=== PATIENT | male | born 1940 | race Caucasian/White ===

== ENCOUNTER 2023-04-30 10:13 | Outpatient (RCR) | payer MEDICARE, OTHER, SELFPAY ==
[2023-04-30 10:20] VITALS: BP 165/80
[2023-04-30] MEDS: CORTROSYN 1 MG IV (11:30)
[2023-04-30 12:30] VITALS: BP 162/80
[2023-04-30 13:33] LABS: ACTH Stim Cortisol 30 Min 16.6 ug/dl
== END 2023-05-24 23:59 | disposition home or self-care (01) ==
LOC: OID 10:13
PROVIDERS: ATTENDING PHYSICIAN Internal Medicine Geriatric Medicine
DX: I95.1 Orthostatic hypotension (principal)
CPT/HCPCS: 36415; 82533; 96374

== ENCOUNTER → 2023-08-10 10:53 | Outpatient (REF) | payer MEDICARE, OTHER, SELFPAY | LOC: HWRAD 10:53 | PROVIDERS: ATTENDING PHYSICIAN Internal Medicine Geriatric Medicine | DX: S09.90XA Unspecified injury of head, initial encounter (principal) | CPT/HCPCS: 70450 ==

== ENCOUNTER 2023-09-04 21:16 | Observation (INO) | payer MEDICARE, OTHER, SELFPAY ==
[2023-09-04] VITALS (8 sets, daily range): BP systolic 147–175; BP diastolic 61–85; BMI 25.9; BMI 25.4
--- NOTE | 2023-09-04 15:31 | ED.GENMED ---
History of Present Illness
General
Chief Complaint: Dizziness
Source: patient
Exam Limitations: none
Time Seen by Provider: 09/04/23 15:17
Nursing documentation reviewed up to this point in time: agreed with
Travel History
Have you had any contact with someone who has COVID-19?: No
Do you have any symptoms of coronavirus? Fever > 100 degrees, chills, cough, shortness of breath, sore throat, loss of taste or smell, muscle aches, or headache?: No
History of Present Illness
History of Present Illness:
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 Patient has a history of orthostatic hypotension however the past
1 week he has felt very dizzy. He reports this feels slightly different than his normal orthostatic hypotension because after getting up symptoms are lasting and not going away. Patient does not necessarily feel the room spinning. He reports
symptoms occur only with change in position. He does report this week his blood pressure was on the lower side 88/50.
Past History
Past History
ED Past Medical History: Arrthythmia, CAD, Cancer (Melanoma), HTN, Hypercholesterolemia, Valvular disease, Psychiatric (Depression) and Other (mIGRAINES, )
ED Past Surgical History: Cardiac (CABG, Aortic valve replaced. ) and Tonsilectomy
Social History
Tobacco: Non-smoker
Alcohol: Daily ([place] )
Personal: Single
Living: alone
Employment: Retired
Family History
Family History: Negative Diabetes, Hypertension, Early CAD, Asthma or Cancer
Review of Systems
Review of Systems
Allergies reviewed?: Yes
All Other Systems: ROS reviewed and negative except as documented in HPI and ROS
Constitutional: Reports no symptoms; Denies fever, fatigue or chills
EENT: Reports no symptoms
Respiratory: Reports no symptoms
Cardiac: Reports other (dizzy with position change )
ABD/GI: Reports nausea (nausea with dizziness )
: Reports no symptoms
Musculoskeletal: Reports no symptoms
Skin: Reports no symptoms
Neurological: Reports dizzy
Endocrine: Reports no symptoms
Hematologic/Lymphatic: Reports no symptoms
Psychiatric: Reports no symptoms
Phy Exam
General Physical Exam
General Presentation: no apparent distress
General age: appears stated age
General Skin: warm and dry
General Habitus: normal
General Mental: alert
General Hydration: appears well hydrated
Cardiovascular Exam
Cardiovascular Exam: regular rate/rhythm, no murmur and normal peripheral pulses
Pulmonary Exam
Pulmonary Exam: lungs clear and no respiratory distress
Neurological Exam
Neurological Exam: alert, oriented x3, no motor deficits, no sensory deficits, speech normal and cerebellum intact
[place] Coma Scale
Eye Opening: Spontaneous
Verbal Response: Oriented
Motor Response: Obeys Commands
GCS Total Score: 15
Cerebellar
Cerebellar Function: normal finger to nose
Musculoskeletal Exam
Musculoskeletal Exam: full ROM
Skin Exam
Skin Exam: normal color and warm/dry
Psychiatric Exam
Psychiatric Exam: normal mood/affect
Course
Orders/Labs/Results
Orders:
Orders
09/04/23 Breakfast
Cholesterol Lowering
At Your Request: Full Participation
Cholesterol Lowering: Sodium, 2 Gram
09/04/23 14:57
Electrocardiogram (*1) Urgent
Reason for Study: Chest Pain
EKG- Treatment ONCE
09/04/23 16:09
IV Insert/Care/Rem.- Treatment PRN
09/04/23 16:19
Complete Blood Count/With Diff Urgent
Comprehensive Metabolic Panel Urgent
NT-proBNP Urgent
Comment: ADD ON
PT/INR [Prothrombin Time] Urgent
09/04/23 16:56
CT Head W/o Iv Contrast Urgent
Comment:
Reason For Exam: dizziness
09/04/23 18:30
Orthostatic VS- Treatment ONCE
09/04/23 19:10
Chest [CR Chest - 2 Views ] Urgent
Comment:
Reason For Exam: sob
09/04/23 19:11
Add On- LAB Stat
Tests Added?: cardiac bnp
09/04/23 20:57
Admit/Transfer Patient As Directed
Co-Sign Provider:
Level of Care: Observation services
Assign to:: Telemetry
Physician / Group: guerda bolaños
Diagnosis: dizziness
Reason for Telemetry: Arrhythmia
Date to Stop Telemetry: 09/07/23
Time to Stop Telemetry: 11:00
Reason for Hospitalization: dizziness
09/04/23 20:58
Warfarin [Coumadin] 5 mg PO NOW STA
09/04/23 21:00
Code Status As Directed
Resuscitation Status: Do not resuscitate
Reached after discussion with pt or family/Healthcare POA: Yes
DNR Bracelet Application ONCE
09/04/23 21:46
Acetaminophen [Tylenol] 650 mg PO Q4HPRN PRN
Bisacodyl [Dulcolax] 10 mg RECTAL [id number] PRN
Docusate W/Senna [Senokot-S] 1 tablet PO BIDPRN PRN
Polyethylene Glycol Powder [Miralax] 17 grams PO DAILYPRN PRN
Zolpidem Tartrate [Ambien] 10 mg PO HSPRN PRN
09/04/23 21:46
Urinalysis Reflex To Culture Routine
Activity As Directed
Activity Level: As Tolerated
Neurological Checks As Directed
Frequency: Per unit guidelines
Teds [Anti-embolism (RAGHU) Hose] As Directed
Type: Thigh high
Vital Signs As Directed
Frequency: Per unit guidelines
09/05/23 06:00
Basic Metabolic Panel IN AM
Cardiovascular Evaluation IN AM
Complete Blood Count/No Diff IN AM
PT/INR [Prothrombin Time] IN AM
Occupational Therapy Consult [Ot Eval And Treat] IN AM
Physical Therapy Consult [Pt Eval And Treat] IN AM
Activity Level: As Tolerated
09/05/23 08:00
Amlodipine [Norvasc] 2.5 mg PO BID
Escitalopram Oxalate [Lexapro] 20 mg PO DAILY
Tamsulosin [Flomax] 0.4 mg PO DAILY
09/05/23 12:00
Atorvastatin [Lipitor] 80 mg PO NOON
Ezetimibe [Zetia] 10 mg PO NOON
09/05/23 15:00
Nebivolol HCl [Bystolic] 2.5 mg PO DAILY@1500
09/05/23 18:00
Warfarin [Coumadin] 2.5 mg PO SuMoWeFrSa@1800
09/06/23 18:00
Warfarin [Coumadin] 1 mg PO TuTh@1800
Warfarin [Coumadin] 2.5 mg PO TuTh@1800
09/07/23 11:00
DC Protocol for Telemetry ONCE
Abnormal Lab Results
09/04/23
16:19
RBC 4.56 L 10^6/uL
(4.70-6.10)
MCH 31.4 H pg
(27.0-31.0)
MPV 10.8 H fL
(7.4-10.4)
Absolute Lymphs (auto) 0.9 L 10^3/uL
(1.2-3.4)
Lymphocytes % 16.3 L %
(20.5-51.1)
Monocytes % 9.4 H %
(1.7-9.3)
PT 21.6 H Sec
(11.4-14.6)
09/04/23 16:19
09/04/23 16:19
Vital Signs
Initial and Last Documented VS:
Initial Vital Signs
Temp Pulse Resp Pulse Ox
97.7 F 67 20 95
09/04/23 14:53 09/04/23 14:53 09/04/23 14:53 09/04/23 14:53
Last Documented Vital Signs
Temp Pulse Resp BP Pulse Ox
98.9 F 66 20 161/85 96
09/04/23 22:01 09/04/23 22:01 09/04/23 22:01 09/04/23 22:01 09/04/23 22:01
MDM/Problems Addressed
Differential Diagnosis Includes:
not limited to: vertigo , cva, orthostatic hypotension
MDM/Problems Addressed:
Patient is an 82-year-old male who presents to the ER for evaluation of dizziness for the past week. He does have a history of orthostatic hypotension and reports he felt this felt similar but this is not going away. It is worse with position
change. He denies the room spinning but feels at times that he is spinning. He is afraid he is going to fall. On arrival he is awake alert no acute distress normal [id number] no nystagmus no headache CT head negative. Patient did walk and is
slightly off balance. Initially in the ER visit he did not mention because he did not want to stay in the hospital he had felt intermittently short of breath. He does have a history of CHF but lungs are clear chest x-ray negative. He does have
artificial valve and is on Coumadin. INR is 1.89.
Patient denies any fevers and is afebrile here with normal white count stable hemoglobin normal chemistries.
Discussed with neuro with continued sensation of dizziness mild balance issues will admit for further workup
Chronic conditions affecting care:
Orthostatic hypotension CHF, vertigo, cva
*Critical Care Note
Total Time (30-74mins, 75-104mins- exclusive of procedures): Not Applicable
ED Attending Note
-
Portions of this chart may have been created with voice recognition software.� Occasional wrong word or��sound alike� substitutions may have occurred due to the inherent limitations of voice recognition software.
Discharge Plan
Departure
Patient Disposition: Admit
Date of Disposition: 09/04/23
Time of Disposition: 20:41
Admit to: Med/Surg
Admit to doctor: hospitalist
Presentation/result/management discussed w/ accepting MD/DO: Hospitalist
Condition: Fair
Covid-19: Not Applicable
Discharge Problem:
Dizziness
Interventions
Interventions:
*Risk Screen - Suicide Last Done: 09/04/23 14:53
*General Assessment Last Done: 09/04/23 14:53
*Neglect/Abuse Screening Last Done: 09/04/23 14:53
ED- Fall Risk Assessment Last Done: 09/04/23 19:52
*ED COVID-19 Vaccine History Last Done: 09/04/23 16:22
*Nursing Disposition Last Done: 09/04/23 21:46
ED- Neurological Assessment Last Done: 09/04/23 16:26
ED Swallowing Screen Last Done: 09/04/23 19:19
Discharge Date and Time
Discharge Date/Time: 09/04/23 21:47
[2023-09-04 16:34] LABS: % Basophils 0.5 % (0-2); % Eosinophils 1.4 % (0-6); % Immature Granulocytes 0.3 % (0-0.5); % Lymphocytes 16.3 % (20.5-51.1); % Monocytes 9.4 % (1.7-9.3); % Neutrophils 72.1 % (42.2-75.2); Absolute Eosinophils 0.1 10^3/uL (0-0.7); Absolute Lymphocytes 0.9 10^3/uL (1.2-3.4); Absolute Monocytes 0.5 10^3/uL (0.1-0.6); Absolute Neutrophils 4.1 10^3/uL (1.4-6.5); Hematocrit 41.6 % (39.0-52.0); Hemoglobin 14.3 g/dL (13.0-18.0); Mean Corp Hgb Conc. 34.4 g/dL (33.0-37.0); Mean Corpuscular Hgb 31.4 pg (27.0-31.0); Mean Corpuscular Volume 91.2 fL (80.0-94.0); Mean Platelet Volume 10.8 fL (7.4-10.4); Nucleated Red Blood Cells % 0 % (-); Platelet Count 133 10^3/uL (130-400); Red Blood Cell Count 4.56 10^6/uL (4.70-6.10); White Blood Cell Count 5.8 10^3/uL (4.8-10.8)
[2023-09-04 16:43] LABS: INR 1.89; PT 21.6 Sec (11.4-14.6)
[2023-09-04 16:48] LABS: ALT (SGPT) 28 U/L (0-50); AST (SGOT) 32 U/L (17-59); Albumin 4.6 g/dl (3.5-5.0); Alkaline Phosphatase 72 U/L (38-126); Blood Urea Nitrogen 19 mg/dl (9-20); Calcium 9.9 mg/dl (8.4-10.2); Carbon Dioxide 26 mmol/L (22-30); Chloride 106 mmol/L (98-107); Estimated Creatinine Clearance 65 ml/min; Glucose 97 mg/dl (70-99); Potassium 4.7 mmol/L (3.5-5.1); Sodium 140 mmol/L (135-145); Total Bilirubin 1.3 mg/dl (0.2-1.3); Total Protein 6.7 g/dl (6.3-8.2); eGFR > 60.00
[2023-09-04 20:12] LABS: NT-proBNP 1660 pg/ml
--- NOTE | 2023-09-04 20:38 | HPS.HSE ---
Family Physician
-
Family Physician: Sander Gorman
Chief Complaint
-
dizzy
History of Present Illness
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 patient stated progressively worsening of dizzy. he was noted
hypotensive at home. patient feels the dizzy, when he up ad chirag. dizzy resolves when sitting or laying down. denied spinning sensation. denied MIRANDA, or syncopal episode. denied fever, chills, runny nose,congestion,cough. denied chest pain, sob. denied
abdominal pain,n,v,d. denied dysuria or hematuria.
admitting for further management.
Medical History
Past Medical History
Past Medical History: Reports Other
Additional Past Medical History:
Coronary artery disease
anxiety
Hypertension
syncope
GERD
Hyperlipidemia
Paroxysmal A-fib
Aortic valve stenosis
Past Surgical History: Reports Other
Additional Past Surgical History:
Aortic valve replacement
Coronary artery bypass graft
Bilateral cataract surgery
Social History
Tobacco: Non-smoker
Alcohol: Daily
Drug: None
Personal: Single
Living: Alone
Employment: Retired
Family History
Family History: Not pertinent
Allergies / Home Medications
Allergies reflects when Allergies were last updated in [facility].
Home Medications with original date entered in [facility]
Allergy/Medication List:
Allergies
Allergy/AdvReac Type Severity Reaction Status Date / Time
No Known Allergies Allergy Verified 09/04/23 14:57
Home Medications
amlodipine 2.5 mg tablet 2.5 mg PO BID 09/04/23
atorvastatin 80 mg tablet 80 mg PO NOON 09/04/23
cholecalciferol (vitamin D3) 25 mcg (1,000 unit) tablet 25 mcg PO DAILY 09/04/23
escitalopram oxalate 20 mg tablet 20 mg PO DAILY 09/04/23
ezetimibe 10 mg tablet 10 mg PO NOON 09/04/23
nebivolol 2.5 mg tablet 2.5 mg PO DAILY@1500 09/04/23
tamsulosin 0.4 mg capsule 0.4 mg PO DAILY 09/04/23
warfarin 1 mg tablet 1 mg PO TUTH@79909/04/23
warfarin 2.5 mg tablet 2.5 mg PO SUMOWEFRSA@79909/04/23
warfarin 2.5 mg tablet 2.5 mg PO TUTH@79909/04/23
zolpidem 10 mg tablet 10 mg PO HS PRN sleep 09/04/23
Review of Systems
-
Constitutional: Reports No Symptoms
EENT: Reports No Symptoms
Respiratory: Reports No Symptoms
Cardiac: Reports No Symptoms
Abdomen/GI: Reports No Symptoms
: Reports No Symptoms
Musculoskeletal: Reports No Symptoms
Skin: Reports No Symptoms
Neurological: Reports Dizzy
Endocrine: Reports No Symptoms
Hematologic/Lymphatic: Reports No Symptoms
Psych: Reports No Symptoms
Physical Exam
Vital Signs
Vital Signs
Temp Pulse Resp BP Pulse Ox
98.2 F 71 14 156/61 96
09/04/23 19:19 09/04/23 19:45 09/04/23 19:45 09/04/23 19:00 09/04/23 19:15
Physical Exam
General: Well Developed, Well Nourished and No Apparent Distress
HEENT: NormoCephalic, Moist mucous membranes and Atraumatic
Respiratory: Clear
Cardiac: S1/S2 and Regular Rhythm; No Murmur or Rub
GI: Soft, Non Tender, Non Distended and Normal Bowel Sounds; No Organomegaly
Rectal: Deferred by Provider
Musculoskeletal: No Clubbing, No Cyanosis and No Edema
Skin: No Rash
Neuro: AO x 3 and Nonfocal/grossly intact
Psych: Calm
Laboratory Results
-
09/04/23 16:19
09/04/23 16:19
Laboratory Results
PT 21.6 Sec (11.4-14.6) H 09/04/23 16:19
INR 1.89 09/04/23 16:19
Total Bilirubin 1.3 mg/dl (0.2-1.3) 09/04/23 16:19
AST 32 U/L (17-59) 09/04/23 16:19
ALT 28 U/L (0-50) 09/04/23 16:19
Alkaline Phosphatase 72 U/L (38-126) 09/04/23 16:19
Data Reviewed
-
Diagnostic Radiology: Report Reviewed by me
CT Scan: Report Reviewed by me
Lab Data: Labs Reviewed by me
Impression/Plan
-
#postural dizziness
-obtain orthostatics
-PT/OT consult
-head ct with No acute intracranial abnormality.
-EKG NSR
-lisseth stockings
-Neurology consulted
#essential hypertension
-Norvasc continued
# Paroxysmal A-fib
-Nebivolol continued
-warfarin continued
#BPH
-Flomax continued
# Hyperlipidemia
-Statin continued
-Zetia continued
#anxiety
-Citalopram continued
#hxt of AVR
#hxt of CAD
-s/p CABG
#DVT prophylaxis
-warfarin continued
#CODE status
-DNR
--- NOTE | 2023-09-04 20:59 | W.PN.UPDATE ---
Update Note
Progress Note Update
This note serves as an addendum to the H&P by home appliances mechanic JUSTIN Linh RUSSELL
HPI
82M HX postural hypotension , mechanical Aortic prostheic valve on chr warfarin, HTN seen at ER for dizziness.
Evaluation of Dizziness and balance disfunction
- acute onset for 1 week
- not necessarily feel the room spinning
- occur only with change in position
- felt nauseated with dizziness
- Report this week his blood pressure was on the lower side 88/50.
- BP at ER: 175/75 --> 150/70
- different from lightheadedness due to postural hypotension
Drink daily one [place]
PMHX:
Arrhythmia
CAD
Melanoma
HTN
Hypercholesterolemia,
Valvular disease
Depression
Migraines
PSHX:
CABG
Mechanical Aortic valve replaced
Tonsillectomy
SHX
Tobacco: Non-smoker
Alcohol: Daily ([place] 1)
Personal: Single
Living: alone
Employment: Retired
FHX
Negative Diabetes, Hypertension, Early CAD, Asthma or Cancer
Reviewed VS: Afebrile 175/75 --> 150/70 HR hi 50s to 60s
PE
Gen: not toxic , appropriate
HEENT: symmetric AE, nl speech, nl cognition , no nystagmus
Neck: supple , no carotid bruit , no JVD
Lungs: symmetric AE
Cor: RRR S1 S2 , POS Aortic valve click
Abdomen: soft benign
INSIDE WIRER: AAO3, NFND
MS: no edema
Psych: appropriate
Data
Unremarkable CBC
Unremarkable CMP
INR 1.89
CXR: No acute cardiopulmonary process.
HCT: No acute intracranial abnormality
12/14/17 TTE
nl BiV size and systolic function
Normally functioning mechanical prosthetic aortic valve.
Last hospitalist admission:
ASSESSMENT & PLAN
Acute onset of persistent orthostatic Dizziness with walking for 1 week
Associated nausea and associated balance dysfunction
Non focal exam DDX: Likely BPPV vs central
- fall precaution
- check ortho VSS once in AM
- PT/OT
- Cannot have Brain MRI due to mechanical prosthetic valve
- Neuro consult
Sub Rx-tic INR 1.89
Normally functioning mechanical prosthetic aortic valve with goal 2.5- 3.5
- additional 2 .5 mg of warfarin tonight and cont [employer]ET[employer]IST Warfarin
- daily INR
Essential HTN
- cont Amlodipine and Nebivolol
HLD
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
BPH
- on tamsulosin
DVT Px: on warfarin
Full code
OBS TLM
[2023-09-04] MEDS: COUMADIN 5 MG PO (21:13)
[2023-09-05] VITALS (7 sets, daily range): BP systolic 116–165; BP diastolic 57–72; PULSE 69–75; BMI 24.8
--- NOTE | 2023-09-05 01:35 | PTCARENOTE ---
Pt received from ER aaox3 able to make his needs known, pleasant & cooperative. Pt c/o dizziness only at times when trying to get up or trying to walk. Pt encouraged to call for help as needed. KICK [employer]OXER chemical dependency professional made aware of pt BP range, refusing RAGHU
stockings & pt asking for sleeping pill & unable to give at this time as pt here with dizziness & with safety concerns, pt able to understand.Pt provided with urinal. Call mcclain in reach.Plan of care continued.CHF packet provided to pt.
[2023-09-05 05:34] LABS: Hematocrit 39.1 % (39.0-52.0); Hemoglobin 13.5 g/dL (13.0-18.0); Mean Corp Hgb Conc. 34.5 g/dL (33.0-37.0); Mean Corpuscular Hgb 31.3 pg (27.0-31.0); Mean Corpuscular Volume 90.7 fL (80.0-94.0); Mean Platelet Volume 10.8 fL (7.4-10.4); Platelet Count 120 10^3/uL (130-400); Red Blood Cell Count 4.31 10^6/uL (4.70-6.10); White Blood Cell Count 4.2 10^3/uL (4.8-10.8)
[2023-09-05 05:43] LABS: INR 1.96; PT 22.2 Sec (11.4-14.6)
[2023-09-05 06:00] LABS: Blood Urea Nitrogen 18 mg/dl (9-20); Calcium 8.9 mg/dl (8.4-10.2); Carbon Dioxide 26 mmol/L (22-30); Chloride 107 mmol/L (98-107); Estimated Creatinine Clearance 65 ml/min; Glucose 90 mg/dl (70-99); HDL Cholesterol 39 mg/dl; LDL Cholesterol, Calculated 42 mg/dl; Potassium 3.7 mmol/L (3.5-5.1); Sodium 140 mmol/L (135-145); Total Cholesterol 104 mg/dl (50-199); Triglyceride 117 mg/dl (10-149); Very Low Density Lipoprotein 23 mg/dl (0-30); eGFR > 60.00
[2023-09-05 07:15] LABS: Urine Albumin Negative (Neg - Trace); Urine Bilirubin Negative (Negative); Urine Character Clear (Clear); Urine Color Yellow; Urine Glucose Negative (Negative); Urine Ketone Negative (Negative); Urine Leukocyte Negative (Negative); Urine Nitrite Negative (Negative); Urine Occult Blood Negative (Negative); Urine Specific Gravity 1.015 (<1.030); Urine Urobilinogen Negative (Neg - 1+); Urine pH 6.5 (5.0-9.0)
[2023-09-05] MEDS: NORVASC 2.5 MG PO (08:18)
[2023-09-05] MEDS: LEXAPRO 20 MG PO (08:18)
[2023-09-05] MEDS: FLOMAX 0.400000000000000022 MG PO (08:19)
[2023-09-05] MEDS: LIPITOR 80 MG PO (12:18)
[2023-09-05] MEDS: ZETIA 10 MG PO (12:18)
--- NOTE | 2023-09-05 13:18 | CON.NEURO4 ---
Consultation - Neurology 4
-
CONSULTING PHYSICIAN: Allegra Baumann
REFERRING PHYSICIAN: Hospitalist
DICTATED BY: Allegra Baumann
DATE/TIME OF REQUEST: 09/05/23
DATE/TIME OF CONSULTATION: 09/05/23
Reason for Consultation: Dizziness
History of Present Illness:
Patient is an 82-year-old man with a past med history of aortic valve replacement on Coumadin, orthostatic hypotension, coronary artery disease, CHF and hyperlipidemia presented to hospital for dizziness happening over about the past week.
Patient characterizes has dizziness as very frequent but not completely constant, currently sitting in the chair he feels fine without any vertigo or dizziness sensation. With standing and with movements and walking patient does have sensation of
dizziness. He denies any sudden hearing change or tinnitus recently. No double vision or unilateral paresthesia or weakness. No unusual headaches or dysarthria. He is compliant with medications for high blood pressure including amlodipine,
nebivolol, and does take tamsulosin for BPH as well. No recent illnesses and no recent changes in medications he is compliant with Coumadin.
Patient relates a history of orthostatic hypotension with blood pressure sometimes dropping to the 80s to 90 systolic with standing. To his knowledge he is not taking Midodrine or medications to increase blood pressure.
Allergies: No known drug allergies
Review of Symptoms:
Patient denies any fever, headache, chest pain, shortness of breath, GI or symptoms.
Physical Exam:
Well-appearing elderly man no signs of acute distress no head or neck trauma eyes are clear oropharynx is clear, no neck masses, heart rate with systolic murmur, regular rhythm, breathing unlabored, abdomen soft nontender, no lower extremity edema
seen
Neurologic Examination:
The patient is awake, alert and oriented x 3. He is able to follow commands and answer questions appropriately. There is no aphasia or dysarthria. On cranial nerve assessment, pupils are 3 mm bilateral, round and reactive to light and
accommodation. Visual parkinson are full. Extraocular movements are intact. No pathologic or abnormal nystagmus seen. Facial sensations are intact and bilaterally symmetrical, there is no facial asymmetry. Hearing is intact bilaterally to normal
conversation volume. Tongue palate and uvula are midline. Sternocleidomastoid strengths are full bilaterally. Motor strengths are 5/5 bilateral upper and lower extremities on medical research [place] scale. There is no drift or involuntary movement
noted. Deep tendon reflexes are 2+ bilateral upper and lower extremities and Babinski is absent bilaterally. Normal sensation to light touch. There was no extinction noted on double simultaneous stimulation. Coordination is intact by finger to nose
bilaterally.
Wallace Hallpike maneuver negative for nystagmus
CT head non contrast no acute abnormalities
Impressions
Dizziness. Examination not at all consistent with vestibular neuritis and his history and exam also I do not feel arouse concern for posterior circulation ischemic stroke. Most likely this is in part due to orthostatic hypotension given use of
Tamsulosin, Amlodipine, and Nebivolol in patient with known CHF and history or orthostatic hypotension. Some possibility this is anterior or horizontal canal BPPV, as BPPV can sometimes have long lasting or seemingly constant dizziness instead of
the usual short lasting episodes of vertigo seen in BPPV.
Recommendations:
1. Vestibular based physical therapy may be helpful and I do think would be worthwhile
2. Would considering lowering or stopping one of the agents that can produce low blood pressure (tamsulosin, amlodipine or nebivolol)
3. Not seeing strong reason to pursue brain MRI or further head/neck imaging for the patient
4. Will be useful to follow BP's at home
Discussed patient care with: Patient, Dr Gardiner
--- NOTE | 2023-09-05 13:25 | CM ---
Alert awake oriented patient who lives alone in a 3 story home with 2 step to enter and 14 steps to bed and bathroom. He is independent in driving and in all activities of daily living.He uses a Cane. He was offered VN he declined need because he
was given pamphlet for Vestibular out pt Therapy which he said he will set up after dc.SORIANO letter reviewed.SORIANO letter signed on chart.
No VN hx / No SNF history
Pharmacy [facility]
PCP DR Gorman
PLAN Home Declined VN
--- NOTE | 2023-09-05 15:52 | W.PN.HOSP.TC ---
Today's Communication/Plan
-
d/c home
Assessment / Plan
Assessment / Plan
# Dizziness
-Have on and off episodes although worsening in last 1 week
-Orthostatic vitals positive with drop in SBP from 138 to 120, after discussion with patient discontinuing Norvasc. Continue Flomax. Patient mentioned about starting Flomax approximately 1 week back and may be playing a role as well.
-Physical therapy/vestibular assessment ruled out any BPPV/neuritis
-Neurology evaluated and no concern of posterior circulation stroke.
-CT head is negative for any acute abnormalities.
-Patient to be discharged home with follow-up with vestibular therapy on outpatient basis
#essential hypertension
-discontinue norvasc
# Paroxysmal A-fib
-Nebivolol continued
-warfarin continued
#BPH
-Flomax continued
# Hyperlipidemia
-Statin continued
-Zetia continued
#anxiety
-Citalopram continued
#hxt of AVR
#hxt of CAD
-s/p CABG
#DVT prophylaxis
-warfarin continued
#CODE status
-DNR
More than 30 minutes spent in discharge including
Final examination of the patient
Summarizing hospital stay
Instructions for continuing care to all relevant caregivers
Preparation of discharge records, prescriptions, and referral forms
Total time spent (in minutes): 36 mins
Anticipated Discharge: Today
Subjective/Interval History
-
Date of Service: September 05, 2023
have dizziness
no nausea/vomiting/headache
no other neuro complains
Objective Data
-
Labs:
Laboratory Results
09/05/23
04:40
WBC 4.2 L
Hgb 13.5
Hct 39.1
Plt Count 120 L
PT 22.2 H
INR 1.96
Sodium 140
Potassium 3.7
Chloride 107
Carbon Dioxide 26
BUN 18
Creatinine 0.9
Glucose 90
Calcium 8.9
Vital Signs:
Vital Signs
Temp Pulse Resp BP Pulse Ox
98 F 76 18 138/72 94
09/05/23 11:22 09/05/23 11:22 09/05/23 11:22 09/05/23 11:22 09/05/23 11:22
I&O
09/04/23 09/05/23 09/06/23
06:59 06:59 06:59
Intake Total 0 / 0
Output Total 250 / 250
Balance -250 / -250
Review of Systems
-
Respiratory: Reports No Symptoms
Cardiac: Reports No Symptoms
Abdomen/GI: Reports No Symptoms
Physical Exam
-
General: No Apparent Distress and Comfortable
HEENT: Negative Oxygen
Respiratory: Clear to Auscultation
Cardiac: Regular Rhythm and S1/S2; Negative Murmur or Rub
GI: Soft, Nontender, Nondistended and Normal Bowel Sounds
Musculoskeletal: No Edema
Neuro: Awake, Alert, Oriented, No Motor Deficits and Nonfocal/Grossly Intact
Psych: Calm
--- NOTE | 2023-09-05 17:38 | W.DCSUMMARY ---
Discharge Summary
Discharge Data
Date of Admission: 09/04/23
Date of Discharge: 09/05/23
-
Pending Results: No
Hospital Course
Discharging Physician : Dr Sam Gardiner
Disposition : Home
Primary care physician : Dr Sander Gorman
Principal Discharge diagnosis :
Acute on chronic dizziness
Orthostatic hypotension
Chronic Discharge diagnosis :
Essential hypertension
Paroxysmal atrial fibrillation on warfarin
Benign prostate hyperplasia
Hyperlipidemia
Anxiety
History of aortic valve replacement
History of coronary disease and bypass
Hospital Course :
Patient is 82-year-old male with above-mentioned past medical history came to ER for having worsening dizziness. Symptoms not truly described as vertigo. Patient does have some episodic dizziness episode and there was concern upon possible
posterior circulation stroke. CT head was done which was negative for any acute abnormality. Neurology was involved in care for further evaluation and clinically there was low concern for any stroke event. Apparently patient cannot get MRI with
and comfortable heart valve. Patient orthostatic vitals were checked and was dropping systolic blood pressure from 138-120. Patient was taken off of [facility] after discussion with patient. Patient was evaluated by physical therapy and vestibular
assessment was negative for any BPPV or neuritis symptoms. Patient was cleared to be discharged home at this point with follow-up with outpatient physical therapy/vestibular therapy center.
Important imaging findings :
None
Procedure findings :
None
Discharge Plan
-
Patient Disposition: Home (Routine Discharge)
Discharge Diagnosis/Procedures: orthostatic hypotension, Hearing loss, Dizziness
Condition: Fair
Diet: Regular
Activity: As tolerated
Driving Restrictions: No driving
Bathing Restrictions: OK to Shower
Other Services: PT
Referrals:
Sander Gorman MD [Family Provider] - in one week
Araceli Ramon MD [Active] -
Additional Discharge Medication Instructions: STOP amlodipine
Prescriptions:
New
cetirizine [Zyrtec] 10 mg tablet
10 mg PO DAILY PRN (Reason: Postnasal drip) Qty: 30 0RF
Continued
atorvastatin 80 mg Tablet
80 mg PO NOON
warfarin 2.5 mg Tablet
2.5 mg PO SUMOWEFRSA@0800
warfarin 2.5 mg Tablet
2.5 mg PO TUTH@0800
Rx Instructions:
09/04/2023, take with 1 mg for a total of 3.5 mg.
warfarin 1 mg Tablet
1 mg PO TUTH@0800
Rx Instructions:
09/04/2023, take with 2.5 mg for a total of 3.5 mg.
zolpidem 10 mg Tablet
10 mg PO HS PRN (Reason: sleep)
Patient Comments:
09/04/2023, pt. stopped taking because he states that it is not working.
escitalopram oxalate 20 mg Tablet
20 mg PO DAILY
ezetimibe 10 mg Tablet
10 mg PO NOON
cholecalciferol (vitamin D3) 25 mcg (1,000 unit) Tablet
25 mcg PO DAILY
nebivolol 2.5 mg Tablet
2.5 mg PO DAILY@1500
tamsulosin 0.4 mg Capsule
0.4 mg PO DAILY Qty: 30 0RF
Rx Instructions:
STOP THIS MEDICATION IF CONTINUE TO HAVE DIZZINESS
Discontinued
amlodipine 2.5 mg Tablet
2.5 mg PO BID
Discharge Orders:
Discharge Patient (As Directed); Ordered 09/05/23
Ordered By: Sam Gardiner
Discharge Date and Time
Discharge Date/Time: 09/05/23 13:35
Print Language: SLOVENIAN
== END 2023-09-05 13:35 | disposition home or self-care (01) ==
LOC: 4 EAST ACU 21:16
PROVIDERS: Nurse Practitioner; Registered Nurse; ADMITTING PHYSICIAN Internal Medicine; ATTENDING PHYSICIAN Hospitalist; EMERGENCY PHYSICIAN Emergency Medicine; FAMILY PHYSICIAN Internal Medicine Geriatric Medicine; OTHER PHYSICIAN Student in an Organized Health Care Education/Training Program
DX: R42 Dizziness and giddiness (principal); I95.1 Orthostatic hypotension; I25.10 Atherosclerotic heart disease of native coronary artery without angina pectoris; R06.02 Shortness of breath; I50.9 Heart failure, unspecified; I11.0 Hypertensive heart disease with heart failure; F41.9 Anxiety disorder, unspecified; K21.9 Gastro-esophageal reflux disease without esophagitis; I48.0 Paroxysmal atrial fibrillation; N40.0 Benign prostatic hyperplasia without lower urinary tract symptoms; E78.00 Pure hypercholesterolemia, unspecified; Z95.1 Presence of aortocoronary bypass graft; Z85.820 Personal history of malignant melanoma of skin; Z66 Do not resuscitate; Z79.01 Long term (current) use of anticoagulants; Z95.2 Presence of prosthetic heart valve; Z82.49 Family history of ischemic heart disease and other diseases of the circulatory system
CPT/HCPCS: 70450; 71046; 80048; 80053; 80061; 81003; 83880; 85025; 85027; 85610; 93005; 97112; 97162; 97166; 99285; G0378

== ENCOUNTER → 2024-03-04 12:26 | Outpatient (REF) | payer MEDICARE, OTHER, SELFPAY | LOC: HWRCS 12:26 | PROVIDERS: ATTENDING PHYSICIAN Internal Medicine Cardiovascular Disease; FAMILY PHYSICIAN Internal Medicine Geriatric Medicine | DX: Z95.2 Presence of prosthetic heart valve (principal) | CPT/HCPCS: 93306 ==

== ENCOUNTER → 2024-04-02 15:28 | Outpatient (REF) | payer MEDICARE, OTHER, SELFPAY | LOC: RAD 15:28 | PROVIDERS: ATTENDING PHYSICIAN Internal Medicine Geriatric Medicine | DX: E78.2 Mixed hyperlipidemia (principal); M10.9 Gout, unspecified; I48.0 Paroxysmal atrial fibrillation; I35.0 Nonrheumatic aortic (valve) stenosis; Z95.2 Presence of prosthetic heart valve; I95.1 Orthostatic hypotension; Z13.89 Encounter for screening for other disorder; N40.1 Benign prostatic hyperplasia with lower urinary tract symptoms; R10.11 Right upper quadrant pain; E55.9 Vitamin D deficiency, unspecified; R06.09 Other forms of dyspnea; M25.532 Pain in left wrist; R42 Dizziness and giddiness; M54.16 Radiculopathy, lumbar region | CPT/HCPCS: 72110 ==